=== PATIENT | male | born 1960 | race Caucasian/White ===

== ENCOUNTER 2022-09-21 21:01 | Emergency (ER) | payer BC ==
[~2022-09-21] VITALS: Ht 177.8 cm; Wt 70.3 kg
[2022-09-21] MEDS ORDERED: NORVASC2.5 MG PO (21:53)
[2022-09-21] MEDS ORDERED: BACTRIM DS TAB1 EACH PO (22:12)
== END 2022-09-21 22:40 | disposition home or self-care (01) ==
LOC: ER 21:01
DX: L03.113 Cellulitis of right upper limb (principal); I10 Essential (primary) hypertension; Z88.0 Allergy status to penicillin